=== PATIENT | male | born 1970 | race Caucasian/White ===

== ENCOUNTER → 2019-04-14 | Outpatient (CLI) | payer OTHER ==
--- NOTE | 2019-04-14 09:51 | REP ---
RIGHT LOWER EXTREMITY DUPLEX DOPPLER VENOUS ULTRASOUND WITH EVALUATION FOR VENOUS REFLUX: Real-time compression and duplex Doppler interrogation of the right lower extremity deep venous system is performed. Right common femoral, superficial femoral and popliteal veins are fully compressible with transducer pressure and demonstrate normal spontaneous and phasic flow without evidence of deep venous thrombosis. Evaluation for venous reflux is performed in the right lower extremity. There is no reflux in the deep venous system. There is no reflux in any portion of the greater saphenous vein, which measures 8 mm at the saphenofemoral junction and 5 mm at the thigh and knee levels. There is reflux in the lesser saphenous vein with aeration of 1.7 seconds and AP diameter of that vessel is 6 mm. There are collateral vessels seen at the mid to distal greater saphenous vein. Electronically Signed by Konrad Ventura MD 04/16/2019 05:21 P
== END ==
LOC: M RAD 07:29
PROVIDERS: ATTEND Surgery
DX: I83.813 Varicose veins of bilateral lower extremities with pain (principal)